=== PATIENT | female | born 1960 | race Caucasian/White ===

== ENCOUNTER 2017-03-24 04:16 | Emergency (ER) | payer SELFPAY ==
[~2017-03-24] VITALS: Ht 160 cm; Wt 80.0 kg
[2017-03-24 04:21] VITALS: Ht 160 cm; Wt 80.0 kg
[2017-03-24 04:42] VITALS: PULSE 58; RESP 16
[2017-03-24] MEDS ORDERED: ATEN-51 PO (04:50)
--- NOTE | 2017-03-24 04:53 | ERD ---
ER Documentation Chief Complaint Date/Time DATE: 03/24/17 TIME: 04:48 Chief Complaint c/o elevated BP @ home despite meds. Denies any symptoms HPI 56-year-old female presents to emergency department for elevated blood pressure at home. Patient currently takes atenolol for her high blood pressure, took a dose prior to coming here in the emergency department. It continues to be high and she got worried. Patient denies any other symptoms. Patient denies any chest pain shortness of breath headache dizziness blurry vision. She denies any shortness of breath. Patient denies any other symptoms. ROS All systems reviewed and are negative except as per history of present illness. Medications Home Meds Reported Medications Atenolol* (Atenolol*) Unknown Strength Tablet, PO DAILY, #90 TAB 03/24/17 Allergies Allergies: Coded Allergies: No Known Allergy (Unverified , 03/24/17) PMhx/Soc Medical and Surgical Hx: pt denies Medical Hx, pt denies Surgical Hx FmHx Family History: No coronary disease, No diabetes, No other Physical Exam Vitals Vital Signs Date Time Temp Pulse Resp B/P Pulse Ox O2 Delivery O2 Flow Rate FiO2 03/24/17 05:34 171/81 03/24/17 04:42 58 16 209/96 98 Room Air 03/24/17 04:21 99.2 65 18 201/107 98 Physical Exam GENERAL: The patient is well developed and appropriate for usual state of health, in no apparent distress. CHEST: Clear to auscultation bilaterally. There are no rales, wheezes or rhonchi. HEART: Regular rate and rhythm. No murmurs, clicks, rubs or gallops. No S3 or S4. ABDOMEN: Soft, nontender and nondistended. Good bowel sounds. No rebound or guarding. No gross peritonitis. No gross organomegaly or masses. No Zhang sign or McBurney point tenderness. BACK: No midline or flank tenderness. EXTREMITIES: Equal pulses bilaterally. There is no peripheral clubbing, cyanosis or edema. No focal swelling or erythema. Full range of motion. Grossly neurovascularly intact. NEURO: Alert and oriented. Cranial nerves 2-12 intact. Motor strength in all 4 extremities with 5/5 strength. Sensation grossly intact. Normal speech and gait. SKIN: There is no apparent rash or petechia. The skin is warm and dry. HEMATOLOGIC AND LYMPHATIC: There is no evidence of excessive bruising or lymphedema. No gross cervical, axillary, or inguinal lymphadenopathy. Results 24 hrs Current Medications Medications (Trade) Dose Ordered Sig/[place] Route PRN Reason Start Time Stop Time Status Last Admin Dose Admin Hydralazine HCl (Apresoline) 10 mg ONCE ONCE IV 03/24/17 05:00 03/24/17 05:01 DC 03/24/17 04:58 Discussed this case with my attending physician, Dr. Irving, recommended to give IV hydralazine, patient is completely asymptomatic at this time. Was recommended by Dr. Irving to see primary care doctor in the morning for management of blood pressure medication. Patient was advised of strict return to ER precautions for any symptoms of hypertensive emergencies. Blood pressure was rechecked, was better after given IV hydralazine here in emergency department Procedures/MDM Medical Decision making: Patient's blood pressure was elevated (>120/80) but appears stable without evidence of hypertension emergency or urgency. The patient was counseled about the risks of hypertension and urged to pursue outpatient monitoring and therapy within a week with their primary care physician. Departure Diagnosis: Primary Impression: Hypertension Hypertension type: unspecified Qualified Code: I10 - Hypertension, unspecified type Condition: Stable ANDREA KEVIN NP Mar 24, 2017 04:53
[2017-03-24] MEDS ORDERED: hydrALAzine 20 MG INJ IV ONE (05:00)
[2017-03-24 05:34] VITALS: BP 171/81
== END 2017-03-24 05:53 | disposition home or self-care (01) ==
LOC: FTE 04:16
DX: I10 Essential (primary) hypertension (principal)
CPT/HCPCS: 96374; 99284; J0360